=== PATIENT | male | born 1960 | race Caucasian/White ===

== ENCOUNTER 2019-09-22 18:56 | Emergency (ER) | payer SELFPAY ==
[~2019-09-22] VITALS: Ht 162.6 cm; Wt 96.2 kg
[2019-09-22 19:21] VITALS: BP 157/90
--- NOTE | 2019-09-22 19:26 | NUR ---
PT AMBULATED TO LOBBY TO A/W BED
--- NOTE | 2019-09-22 19:47 | NUR ---
PT AMBULATED TO BED 4
--- NOTE | 2019-09-22 19:52 | NUR ---
CAME IN WITH C/O EAR PAIN FOR 5 DAYS NOW, 5/10 PAIN LEVEL
--- NOTE | 2019-09-22 20:00 | NUR ---
SEEN AND EXAMINED BY ERMD AT BEDSIDE.
[2019-09-22 20:27] VITALS: BP 142/82
--- NOTE | 2019-09-22 20:27 | NUR ---
Patient discharged with v/s stable. Written and verbal after care instructions given and explained BY DR. JENKINS Patient alert, oriented and verbalized understanding of instructions. Ambulatory with steady gait. All questions addressed prior to discharge. ID band removed. Patient advised to follow up with PMD. Rx of AUGMENTIN 875 MG given. Patient educated on indication of medication including possible reaction and side effects. Opportunity to ask questions provided and answered.
== END 2019-09-22 20:27 | disposition home or self-care (01) ==
LOC: MED 18:56
DX: H66.93 Otitis media, unspecified, bilateral (principal)
CPT/HCPCS: 99283